=== PATIENT | male | born 1970 | race American Indian/Alaskan Native ===

== ENCOUNTER 2017-04-01 12:39 | Emergency (ER) | payer OTHER ==
[~2017-04-01] VITALS: Ht 170.2 cm; Wt 81.7 kg
[~2017-04-01 12:39] MED LIST: ALBUTEROL SULF8.5 GM; ASPIRIN81 MG; DOXYCYCLINE HY100 MG PO; OMEPRAZOLE20 MG PO; ZOFRAN8 MG PO
== END 2017-04-01 13:10 | disposition home or self-care (01) ==
LOC: ED 12:39
DX: Z00.8 Encounter for other general examination (principal)